=== PATIENT | female | born 1930 | race Caucasian/White ===

== ENCOUNTER 2017-04-14 15:36 | Emergency (ER) | payer MEDICARE, OTHER ==
[2017-04-14 17:14] LABS: URINE BLOOD (Dip) POC Trace-lysed (NEGATIVE); URINE GLUCOSE (Dip) POC Negative (NEGATIVE); URINE KETONES (Dip) POC Negative (NEGATIVE); URINE LEUKOCYTE EST (Dip) POC Negative (NEGATIVE); URINE NITRITE (Dip) POC Negative (NEGATIVE); URINE TOTAL PROTEIN POC Negative (NEGATIVE)
[2017-04-14 17:14] LABS: URINE PH (Dip) POC 5.5 (5.0-8.5)
[2017-04-14] MEDS: KETOROLAC 15 MG INJ IM (17:16)
== END 2017-04-14 18:55 | disposition home or self-care (01) ==
LOC: FTE 15:36
DX: M54.42 Lumbago with sciatica, left side (principal); I10 Essential (primary) hypertension
CPT/HCPCS: 72100; 81003; 96372; 99284-25